=== PATIENT | female | born 1960 | race Caucasian/White ===

== ENCOUNTER 2018-10-15 00:35 | Outpatient (RCR) | payer OTHER ==
[~2018-10-15 00:35] MED LIST: AMIT-104 PO; CEPH-13 PO; LEVO100T95 PO
--- NOTE | 2018-10-16 11:56 | RADIOLOGY IMAGING REPORT ---
FACILITY: [facility] PATIENT NAME: Liliane Koenig : 1960 MR: [id number] V: [id number] EXAM DATE: ORDERING PHYSICIAN: LENCHO REYNOSO TECHNOLOGIST: Location: [facility] - [place] Patient: Liliane Koenig : 1960 Visit/Account:[id number] Date of Sevice: 10/16/2018 GALLBLADDER HISTORY: Right upper quadrant pain x11 days lump felt in the right upper quadrant COMPARISON: None. FINDINGS: Gallbladder: Unremarkable; no stones or sludge. Liver: Negative. Common duct: Normal, 4.2 mm diameter. Pancreas: Partially obscured by bowel, visualized aspects unremarkable. Right kidney: Right kidney measures 9.5 cm in length. Tiny echogenic foci are seen within the right kidney although no evidence of hydronephrosis. This could represent tiny nonshadowing stones Upper abdominal aorta and IVC: Patent. Ascites: None visualized. IMPRESSION: There are tiny echogenic foci within the right kidney which could represent tiny nonshadowing stones although no evidence of hydronephrosis Right upper quadrant otherwise appears unremarkable Report Dictated By: Yesi Hannon MD at 10/16/2018 11:49 AM Report E-Signed By: Yesi Hannon MD at 10/16/2018 11:52 AM GABYN:GRETCHEN
--- NOTE | 2018-10-20 08:46 | RADIOLOGY IMAGING REPORT ---
FACILITY: [facility] PATIENT NAME: JENNIFER BENSON : [id number] MR: [id number] V: [id number] EXAM DATE: [id number] ORDERING PHYSICIAN: LENCHO REYNOSO TECHNOLOGIST: Ade Hill PROCEDURE:BILATERAL DIGITAL SCREENING MAMMOGRAM WITH CAD ASSISTED INTERPRETATION & 3D TOMOSYNTHESIS COMPARISON:Prior mammograms 10/14/17, 10/07/16, 11/06/15, 05/26/15. INDICATIONS:SCREENING IMPLANTS FINDINGS: There are bilateral subpectoral breast implants in place. There is no evidence of implant rupture. Mildly heterogeneous fibroglandular tissue is seen anterior to the implants. There is no evidence of malignant appearing mass, malignant appearing calcifications or other secondary sign of malignancy in either breast. DIAGNOSTIC CATEGORY 2--BENIGN FINDING. RECOMMENDATIONS: ROUTINE MAMMOGRAM AND CLINICAL EVALUATION. IMPRESSION: BIRADS 2: Benign finding. No significant abnormality is seen. Dictated by: Yesi Hannon M.D. on 10/19/2018 at 16:46 Transcribed by: BOBO on 10/20/2018 at 8:24 Approved by: Yesi Hannon M.D. on 10/20/2018 at 8:45 [facility]
== END 2018-10-19 18:00 | disposition home or self-care (01) ==
LOC: US 00:35 → EDSTATUS 13:30 → US 10-19 18:00
PROVIDERS: ATTEND Family Medicine
DX: Z12.31 Encounter for screening mammogram for malignant neoplasm of breast (principal); R10.11 Right upper quadrant pain; R19.00 Intra-abdominal and pelvic swelling, mass and lump, unspecified site; Z98.82 Breast implant status
CPT/HCPCS: 76705; 77063; 77067

== ENCOUNTER → 2018-10-30 | Outpatient (CLI) | payer OTHER ==
[~2018-10-30] MED LIST changes: +IOPAMIDOL 76% 50 ML INFUS BTL 100 ML ONE
--- NOTE | 2018-10-30 13:12 | RADIOLOGY IMAGING REPORT ---
FACILITY: [facility] - [place] PATIENT NAME: Liliane Koenig : 1960 MR: [id number] V: [id number] EXAM DATE: ORDERING PHYSICIAN: SANTIAGO GRAHAM TECHNOLOGIST: Location: [facility] - [place] Patient: Liliane Koenig : 1960 Visit/Account:[id number] Date of Sevice: 10/30/2018 CT ABDOMEN WITH IV CONTRAST CLINICAL INFORMATION: Right upper quadrant abdominal lump, tender to touch x3 weeks TECHNIQUE: Axial CT images were obtained through the abdomen during injection of nonionic iodinated intravenous contrast. Reformatted coronal and sagittal images were also obtained.Dose Lowering Techn ique One of the following dose optimization techniques was utilized in the performance of this exam: Autom ated exposure control; adjustment of the mA and/or kV according to the patient's size; or use of an i terative reconstruction technique. Specific details can be referenced in the facility's radiology C T exam operational policy. CONTRAST: 75 mL of Isovue 370 IV contrast. COMPARISON: None available.. FINDINGS: Lower lung spears: Limited views lower lung field are unremarkable. Liver: There is a 1.6 x 1.2 cm cyst in the inferior right lobe the liver several other tiny hypodensi ties in liver likely representing additional cysts although are too small to characterize Biliary: Gallbladder appears unremarkable as well as the intra and extra hepatic biliary system. Pancreas: There is a small 5 mm ovoid fat-containing area within the uncinate process of the pancreas Spleen: Normal appearance. Adrenal glands: Unremarkable. Kidneys / retroperitoneum: There is a lobular contour to the left kidney which may represent cortical scarring Bowel / peritoneum / mesenteries: The visualized small and large bowel appear unremarkable. Lymph node assessment: There are small shotty retroperitoneal lymph nodes Vessels: No significant atherosclerotic calcification seen throughout a nonaneurysmal abdominal aorta and branches. Musculoskeletal / Body wall: A BB was placed over the anterior right upper abdominal wall in location of patient's palpable findings. No underlying abnormality was visualized IMPRESSION: 1. Small BB was placed along the anterior upper right abdominal wall in location of patient's palpab le findings although no underlying abnormality was detected There is a lobular contour to the left kidney which may represent cortical scarring Hepatic cysts Small 5 mm ovoid fat-containing area within the uncinate process of the pancreas of incidental note Report Dictated By: Yesi Hannon MD at 10/30/2018 12:07 PM Report E-Signed By: Yesi Hannon MD at 10/30/2018 1:05 PM GABYN:GRETCHEN
== END ==
LOC: CT 10-29 01:14
PROVIDERS: ATTEND Surgery
DX: K76.89 Other specified diseases of liver (principal); R10.11 Right upper quadrant pain
CPT/HCPCS: 74160; Q9967

== ENCOUNTER → 2019-04-15 | Outpatient (CLI) | payer OTHER ==
[~2019-04-15] MED LIST changes: -IOPAMIDOL 76% 50 ML INFUS BTL 100 ML ONE; +SINCALIDE 5 MCG VIAL INJ ONE; +WATER FOR INJ,STERILE 20 ML 20 ML ONE
--- NOTE | 2019-04-15 15:32 | RADIOLOGY IMAGING REPORT ---
FACILITY: [facility] PATIENT NAME: Liliane Koenig : 1960 MR: [id number] V: [id number] EXAM DATE: ORDERING PHYSICIAN: LENCHO REYNOSO TECHNOLOGIST: Location: [facility] Patient: Liliane Koenig : 1960 Visit/Account:[id number] Date of Sevice: 04/15/2019 NM HIDA SCAN HISTORY: Right upper quadrant pain with bloating and diarrhea TECHNIQUE: 6.2 mCi Tc99m Hepatolite was injected intravenously. Multiple sequential gamma camera kyara ges of the abdomen were obtained for 54 minutes. At that time, Kinevac was injected intravenously and an additional 30 minutes of gamma camera imaging data was acquired. A computer-generated region of i nterest was placed around the gallbladder and time-activity curve for the gallbladder was derived. Th e gallbladder ejection fraction was calculated. COMPARISON: Gallbladder ultrasound October 16, 2018 FINDINGS: Liver uptake and excretion: Unremarkable. Time to appearance: Bile ducts: 8 minutes. Gallbladder: 9 minutes. Duodenum: 52 minutes. Duodenal-gastric reflux / extravasation: None. Post IV Kinevac: Normal and prompt contraction of the gallbladder. Patient symptoms: Nausea following CCK Ejection fraction = 45% (normal range >35%). IMPRESSION: Normal gallbladder ejection fraction of 45% Report Dictated By: Yesi Hannon MD at 04/15/2019 3:24 PM Report E-Signed By: Yesi Hannon MD at 04/15/2019 3:26 PM WSN:[email or web address]
== END ==
LOC: NUC 01:40
PROVIDERS: ATTEND Family Medicine
DX: R10.9 Unspecified abdominal pain (principal); R19.7 Diarrhea, unspecified; K59.00 Constipation, unspecified; R14.0 Abdominal distension (gaseous)
CPT/HCPCS: 78226; A9537; J2805